=== PATIENT | female | born 1960 | race Caucasian/White ===

== ENCOUNTER 2020-11-01 13:10 | Observation (INO) | payer OTHER ==
[2020-11-01 13:35] LABS: #Basophils 0.1 thou/uL (0.0-0.2); #Eosinphils 0.1 thou/uL (0.0-0.7); #Lymphocytes 3.2 thou/uL (1.20-3.40); #Monocytes 0.6 thou/uL (0.11-0.59); #Neutrophils 5.6 thou/uL (1.40-6.50); %Basophils 1.3 % (0.0-1.0); %Eosinophils 1.3 % (0.0-10.0); %Lymphocytes 32.9 % (21.0-51.0); %Monocytes 6.6 % (0.0-10.0); %Neutrophils 57.9 % (42.0-75.0); Hemoglobin 15.4 g/dL (12.0-16.0); Mean Corpuscular Hemoglobin 31.8 pg (27.0-31.0); Mean Corpuscular Volume 93.5 fL (78.0-98.0); Mean Platelet Volume 7.6 fL (7.4-10.4); Platelet Count 314 thou/uL (130-400); RBC Distribution Width 13.1 % (11.5-14.5); Red Blood Cell (RBC) Count 4.85 mill/uL (4.20-5.40); White Blood Cell (WBC) Count 9.7 thou/uL (4.8-10.8)
[2020-11-01 13:53] LABS: ALT (SGPT) 14 U/L (8-55); AST (SGOT) 14 U/L (5-34); Albumin 4.1 g/dL (3.5-5.0); Alkaline Phosphatase 109 U/L (40-110); Anion Gap 13 mmol/L (10-20); BUN (Urea Nitrogen) 14 mg/dL (9.8-20.1); Bilirubin, Total 0.3 mg/dL (0.2-1.2); Calc. Creatinine Clearance 0 mL/min (70-130); Calcium 9.8 mg/dL (7.8-10.44); Carbon Dioxide 28 mmol/L (22-29); Chloride 101 mmol/L (98-107); Globulin 3.2 g/dL (2.4-3.5); Glucose 138 mg/dL (70-105); Potassium 3.9 mmol/L (3.5-5.1); Protein, Total 7.3 g/dL (6.0-8.3); Sodium 138 mmol/L (136-145)
[2020-11-01] MEDS ORDERED: Aspirin Chewable 81 MG TAB ONE (14:51)
[2020-11-01] MEDS ORDERED: Metoprolol Tartrate 5 MG/5 ML VIAL IVP PRN (19:14)
[2020-11-01] MEDS ORDERED: Ketorolac Tromethamine 30 MG/ML VIAL IVP PRN (19:34)
[2020-11-01] MEDS ORDERED: Dextrose 5% in Water 1,000 ML IV PRN (19:36)
[2020-11-01] MEDS ORDERED: Dextrose 50% Abboject 50 ML SYRINGE SLOW IVP PRN (19:36)
[2020-11-01 19:57] LABS: Troponin I Less than 0.010 ng/mL (< 0.028)
[2020-11-01] MEDS ORDERED: Meloxicam 15 MG TAB PO SCH (20:00)
[2020-11-01] MEDS: Pantoprazole 40 MG VIAL IVP SCH (21:13)
[2020-11-01 21:41] VITALS: BMI 40.1
[2020-11-01] MEDS ORDERED: Ondansetron ODT 4 MG TAB SL PRN (22:15)
[2020-11-01] MEDS ORDERED: Acetaminophen 325 MG TAB PO PRN (22:15)
[2020-11-01] MEDS ORDERED: Ondansetron PF 4 MG/2 ML Vial IVP PRN (22:15)
[2020-11-01 22:47] LABS: Troponin I 0.015 ng/mL (< 0.028)
[2020-11-01] MEDS ORDERED: HYDROcodone/Acetaminophen 5/325 mg Tablet PO PRN (22:52)
[2020-11-01] MEDS ORDERED: Ketorolac Tromethamine 30 MG/ML VIAL IVP SCH (23:59)
[2020-11-02 01:01] LABS: SARS-CoV-2 PCR by NAA Not Detected (NotDetected)
[2020-11-02] MEDS: Pantoprazole 40 MG VIAL IVP SCH (08:23)
[2020-11-02] MEDS: Meloxicam 15 MG TAB PO SCH ×2 (08:31→17:52)
[2020-11-02] MEDS ORDERED: Regadenoson 0.4 MG/5 ML SYRINGE ONE (09:24)
[2020-11-02] MEDS: Aspirin 81 mg Enteric Coated Tablet PO SCH ×2 (11:23→11:24)
[2020-11-02] MEDS ORDERED: Metoprolol Tartrate 5 MG/5 ML VIAL IVP PRN (13:22)
[2020-11-02] MEDS: HumaLOG 300 UNITS/3 ML VIAL SC PRN (18:10)
[2020-11-02] MEDS: Lisinopril 20 MG TAB PO SCH (21:23)
[2020-11-02] MEDS: Amlodipine 10 MG TAB PO SCH (21:23)
[2020-11-03] MEDS: HumaLOG 300 UNITS/3 ML VIAL SC PRN ×2 (00:01→11:48)
[2020-11-03] MEDS: Lisinopril 20 MG TAB PO SCH (08:55)
[2020-11-03] MEDS: Amlodipine 10 MG TAB PO SCH (08:55)
[2020-11-03] MEDS: Aspirin 81 mg Enteric Coated Tablet PO SCH (08:55)
[2020-11-03 09:18] VITALS: BP 166/77
[2020-11-03 12:48] VITALS: TEMP 97.7
[2020-11-03] MEDS ORDERED: Meloxicam 15 MG TAB PO SCH (17:00)
== END 2020-11-03 15:27 | disposition home or self-care (01) ==
LOC: ERS 13:10 → 2SW 18:35
PROVIDERS: ADMIT Internal Medicine; ATTEND Internal Medicine
DX: I10 Essential (primary) hypertension (principal); M25.512 Pain in left shoulder; R07.9 Chest pain, unspecified; E78.00 Pure hypercholesterolemia, unspecified; E11.9 Type 2 diabetes mellitus without complications; K21.9 Gastro-esophageal reflux disease without esophagitis; M17.0 Bilateral primary osteoarthritis of knee; M45.9 Ankylosing spondylitis of unspecified sites in spine; Z87.891 Personal history of nicotine dependence; Z79.1 Long term (current) use of non-steroidal anti-inflammatories (NSAID); Z79.84 Long term (current) use of oral hypoglycemic drugs; Z79.899 Other long term (current) drug therapy; Z20.822 Contact with and (suspected) exposure to COVID-19
CPT/HCPCS: 36415; 36416; 71045; 78452; 80053; 84484; 85025; 85379; 93005; 93017; 96374; 96375; 96376; A9500; C9113; G0378; J1815; J2785; U0003; U0005

== ENCOUNTER 2021-06-13 07:56 | Outpatient (CLI) | payer OTHER | END 2021-06-13 07:57 | disposition home or self-care (01) | LOC: NM 07:56 | PROVIDERS: ATTEND Internal Medicine | DX: K21.9 Gastro-esophageal reflux disease without esophagitis (principal); R11.10 Vomiting, unspecified | CPT/HCPCS: 78264; A9541 ==